=== PATIENT | male | born 1990 | race Caucasian/White ===

== ENCOUNTER 2018-05-29 12:15 | Inpatient (IN) | payer OTHER ==
[2018-05-29 13:26] LABS: Albumin 5.5 g/dL (3.9-5); Calcium 10.3 mg/dL (8.4-10.2)
[2018-05-29] MEDS ORDERED: ATIVAN IV ONE (13:38)
[2018-05-29] MEDS ORDERED: ATIVAN ONE (13:38)
[2018-05-29] MEDS ORDERED: NACL 0.9% 1000 ML 1,000 ML IV ONE ×2 (13:44→14:37)
[2018-05-29] MEDS ORDERED: ZOFRAN IV ONE (13:44)
--- NOTE | 2018-05-29 13:47 | Emergency Department Report ---
HPI - General Chief Complaint: Nausea/Vomiting/Diarrhea Time Seen by Provider: 05/29/18 13:40 - HPI HPI: 27-year-old male presents to the emergency department with complaint of a few days of nausea and vomiting, muscle cramping and suspicion of dehydration. 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 He has been drinking Gatorade and some other fluids but does not think he has been drinking enough. He has had some recent nausea and vomiting and has been unable to eat much food. The patient has a history of depression and anxiety and stopped his benzodiazepines cold turkey about one week ago. He otherwise denies any past medical history. He is currently here visiting/working from [place] and therefore does not have any local primary care physician. Patient vomited upon arrival to the emergency department. ED Past Medical Hx - Past Medical History Previous Medical History?: No - Surgical History Past Surgical History?: No - Social History Smoking Status: Current Every Day Smoker Substance Use Type: None - Medications Home Medications: Home Medications Medication Instructions Recorded Confirmed Last Taken Type Multivit-Minerals/FA/Lycopene [One 1 each PO DAILY 05/29/18 05/29/18 Unknown History Daily [employer] Tablet] ED Review of Systems ROS: Stated complaint: DEHYDRATION/MUSCLE SPASM Other details as noted in HPI Comment: All other systems reviewed and negative Constitutional: denies: chills, fever Eyes: denies: eye pain, eye discharge, vision change ENT: denies: ear pain, throat pain Respiratory: denies: cough, shortness of breath, wheezing Cardiovascular: denies: chest pain, palpitations Gastrointestinal: nausea, vomiting Genitourinary: denies: urgency, dysuria Musculoskeletal: myalgia. denies: joint swelling Skin: denies: rash, lesions Neurological: headache. denies: weakness, numbness Physical Exam - Physical Exam Vital Signs: Vital Signs 05/29/18 12:29 Temperature 97.9 F Pulse Rate 118 H Blood Pressure 132/78 O2 Sat by Pulse 100 Oximetry Physical Exam: GENERAL: The patient is well-developed well-nourished. HENT: Normocephalic. Atraumatic. Patient has moist mucous membranes. EYES: Extraocular motions are intact. Pupils equal reactive to light bilaterally. NECK: Supple. Trachea is midline. CHEST/LUNGS: Clear to auscultation. There is no respiratory distress noted. HEART/CARDIOVASCULAR: Regular. There is no tachycardia. There is no murmur. ABDOMEN: Abdomen is soft, nontender. Patient has normal bowel sounds. There is no abdominal distention. SKIN: Skin is warm and dry. NEURO: The patient is awake, alert, and oriented. The patient is cooperative. The patient has no focal neurologic deficits. The patient has normal speech. Cranial nerves II through XII grossly intact. MUSCULOSKELETAL: There is no tenderness or deformity. There is no limitation range of motion. There is no evidence of acute injury. ED Course Vital Signs 05/29/18 12:29 Temperature 97.9 F Pulse Rate 118 H Blood Pressure 132/78 O2 Sat by Pulse 100 Oximetry ED Medical Decision Making - Lab Data Result diagrams: 05/29/18 13:47 05/29/18 12:50 - Radiology Data Radiology results: report reviewed EXAM: US RENAL BILAT HISTORY: ROSI, renal failure TECHNIQUE: Ultrasound examination of the kidneys PRIORS: None. FINDINGS: Visualized right kidney: 11.6 x 5.1 x 5.6 cm. Visualized left kidney: 12.5 x 5.5 x 4.7 cm. Renal cortical thickness is 18 mm on the right and 17 mm on the left. Focal lesion: None visible Calculus: None visible Hydronephrosis: None Perinephric fluid: None Urinary bladder: No evidence of focal abnormality in visible portion. IMPRESSION: No sonographic evidence of renal pathology Transcribed By: HAILEY Dictated By: ALEKSANDR YADAV MD Electronically Authenticated By: ALEKSANDR YADAV MD Signed Date/Time: 05/29/18 1602 - Medical Decision Making The patient presents with some nausea, vomiting, generalized weakness and dehydration. His metabolic panel shows acute renal failure with a GFR of about 29 without any previous history of kidney disease. He has a CK of 9000 showing rhabdomyolysis. Renal ultrasound does not show any evidence of renal pathology. He has begun to receive IV fluid resuscitation and will be admitted to the hospital for further evaluation and treatment. Accepted by Dr. Stanton, admitting hospitalist. - Differential Diagnosis rhabdomyolysis, gastroenteritis, heatstroke Critical Care Time: No Critical care attestation.: If time is entered above; I have spent that time in minutes in the direct care of this critically ill patient, excluding procedure time. ED Disposition Clinical Impression: Dehydration Rhabdomyolysis Qualifiers: Rhabdomyolysis type: non-traumatic Qualified Code(s): M62.82 - Rhabdomyolysis Acute renal failure Qualifiers: Acute renal failure type: unspecified Qualified Code(s): N17.9 - Acute kidney failure, unspecified Disposition: 09 OP ADMIT IP TO THIS HOSP Is pt being admited?: Yes Condition: Fair Time of Disposition: 16:57
[2018-05-29 14:04] LABS: Basophils # (Auto) 0.1 K/mm3 (0.0-0.1); Basophils % (Auto) 0.6 % (0.0-1.8); Eosinophils % (Auto) 0.1 % (0.0-4.3); Hematocrit 48.1 % (35.5-45.6); Hemoglobin 16.6 gm/dl (11.8-15.2); Lymphocytes # (Auto) 2.3 K/mm3 (1.2-5.4); Lymphocytes % (Auto) 15.2 % (13.4-35.0); Mean Corpuscular HGB Conc 34 % (32-34); Mean Corpuscular Hemoglobin 30 pg (28-32); Mean Corpuscular Volume 88 fl (84-94); Monocytes # (Auto) 1.7 K/mm3 (0.0-0.8); Platelet Count 374 K/mm3 (140-440); Red Blood Count 5.49 M/mm3 (3.65-5.03); Red Cell Distribution Width 12.7 % (13.2-15.2)
[2018-05-29] MEDS ORDERED: ZOFRAN IV PRN (15:05)
[2018-05-29] MEDS ORDERED: TYLENOL PO PRN (15:05)
[2018-05-29] MEDS ORDERED: SODIUM CHLORIDE FLUSH SYRINGE 10 ML IV PRN (15:05)
[2018-05-29] MEDS ORDERED: PROVENTIL IH PRN (15:05)
--- NOTE | 2018-05-29 15:08 | History and Physical Report ---
History of Present Illness Chief complaint: I feel sick History of present illness: 27 YO Male with Depression, Medication noncompliance, Obesity, Nicotine Dependence presents to ED for evaluation. Pt states that he has experienced nausea, multiple episodes of vomiting, muscle cramping, and feeling sick over the past 3 days with worsening symptoms over the same time frame. 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 Pt seen and evaluated in ED and found to have Rhabdomyolysis, Acute Renal Failure, as well as SIRS. Pt admitted to medical floor, and treated with IVF resuscitation therapy. No reports of fever, chills, CP, Palpitations, Trauma , Skin rash, hematuria, urgency, frequency, or recent ill contacts. Past History Past Medical History: other (Depression, obeity) Past Surgical History: No surgical history, Other (reviewed) Social history: single, smoking Family history: no significant family history (reviewed) Medications and Allergies Allergies Allergy/AdvReac Type Severity Reaction Status Date / Time No Known Allergies Allergy Unverified 05/29/18 12:33 Home Medications Medication Instructions Recorded Confirmed Last Taken Type Multivit-Minerals/FA/Lycopene [One 1 each PO DAILY 05/29/18 05/29/18 Unknown History Daily [employer] Tablet] Active Meds: Active Medications Acetaminophen (Tylenol) 650 mg PO Q4H PRN PRN Reason: Pain MILD(1-3)/Fever >100.5/SPIVEY Albuterol (Proventil) 2.5 mg IH Q4HRT PRN PRN Reason: Shortness Of Breath Sodium Chloride (Nacl 0.9% 1000 Ml) 1,000 mls @ 999 mls/hr IV BOLUS ONE Stop: 05/29/18 15:37 Ondansetron HCl (Zofran) 4 mg IV Q8H PRN PRN Reason: Nausea And Vomiting Sodium Chloride (Sodium Chloride Flush Syringe 10 Ml) 10 ml IV BID CHIP Sodium Chloride (Sodium Chloride Flush Syringe 10 Ml) 10 ml IV PRN PRN PRN Reason: LINE FLUSH Review of Systems Constitutional: fatigue, weakness, malaise, no weight loss, no weight gain, no fever, no chills Ears, nose, mouth and throat: no ear pain, no ear discharge, no tinnitis, no decreased hearing, no nose pain, no nasal congestion, no nasal discharge Cardiovascular: no chest pain, no orthopnea, no palpitations, no rapid/ irregular heart beat, no edema Respiratory: no cough, no cough with sputum, no excessive sputum, no hemoptysis Gastrointestinal: nausea, vomiting, no hematemesis, no coffee ground emesis, no BRBPR, no melena, no hematochezia Genitourinary Male: no hematuria, no flank pain, no discharge, no urinary frequency, no urinary hesitancy Rectal: no pain, no incontinence, no bleeding Musculoskeletal: no neck stiffness, no neck pain, no shooting arm pain, no arm numbness/tingling, no low back pain, no shooting leg pain Integumentary: no rash, no pruritis, no redness, no sores, no wounds Neurological: no head injury, no paralysis, no weakness, no parathesias, no numbness, no tingling, no seizures Psychiatric: no anxiety, no memory loss, no change in sleep habits, no sleep disturbances, no insomnia, no hypersomnia Endocrine: no cold intolerance, no heat intolerance, no polyphagia, no excessive thirst, no polydipsia Hematologic/Lymphatic: no easy bruising, no easy bleeding, no lymphadenopathy, no lymphedema Allergic/Immunologic: no urticaria, no allergic rhinitis, no wheezing, no persistent infections, no anaphylaxis, no angioedema Exam - Constitutional Vitals: Temp Pulse Resp BP Pulse Ox 97.9 F 118 H 132/78 100 05/29/18 12:29 05/29/18 12:29 05/29/18 12:29 05/29/18 12:29 General appearance: Present: mild distress, obese - EENT Eyes: Present: PERRL ENT: hearing intact, clear oral mucosa - Neck Neck: Present: supple, normal ROM - Respiratory Respiratory effort: normal Respiratory: bilateral: CTA - Cardiovascular Heart Sounds: Present: S1 & S2. Absent: rub, click - Extremities Extremities: pulses symmetrical, No edema Peripheral Pulses: within normal limits - Abdominal General gastrointestinal: Present: soft, non-tender, non-distended, normal bowel sounds Male genitourinary: Present: normal - Integumentary Integumentary: Present: clear, dry, clammy, decreased turgor - Musculoskeletal Musculoskeletal: gait normal, strength equal bilaterally - Psychiatric Psychiatric: appropriate mood/affect, intact judgment & insight - Neurologic Neurologic: CNII-XII intact, moves all extremities Results - Labs CBC & Chem 7: 05/29/18 13:47 05/29/18 12:50 Labs: Abnormal lab results 05/29/18 05/29/18 05/29/18 Range/Units 12:50 13:47 13:47 WBC 15.2 H (4.5-11.0) K/mm3 RBC 5.49 H (3.65-5.03) M/mm3 Hgb 16.6 H (11.8-15.2) gm/dl Hct 48.1 H (35.5-45.6) % RDW 12.7 L (13.2-15.2) % [place] % (Auto) 11.0 H (0.0-7.3) % [place] # 1.7 H (0.0-0.8) K/mm3 Seg Neutrophils % 73.1 H (40.0-70.0) % Seg Neutrophils # 11.1 H (1.8-7.7) K/mm3 Sodium 134 L (137-145) mmol/L Chloride 84.6 L (98-107) mmol/L BUN 23 H (9-20) mg/dL Creatinine 2.6 H (0.8-1.5) mg/dL Glucose 112 H (75-100) mg/dL Calcium 10.3 H (8.4-10.2) mg/dL AST 197 H (5-40) units/L ALT 83 H (7-56) units/L Total Creatine Kinase 8999 H (55-170) units/L Total Protein 9.3 H (6.3-8.2) g/dL Albumin 5.5 H (3.9-5) g/dL Assessment and Plan - Patient Problems (1) SIRS (systemic inflammatory response syndrome) Current Visit: Yes Status: Acute Plan to address problem: IV antibiotic therapy, CBC, urinalysis, (2) Acute renal failure Current Visit: Yes Status: Acute Qualifiers: Acute renal failure type: with acute tubular necrosis Qualified Code(s): N17.0 - Acute kidney failure with tubular necrosis Plan to address problem: IVF resuscitation therapy, monitor uop q shift, urine electrolytes, avoid nephrotoxic agents. (3) Rhabdomyolysis Current Visit: Yes Status: Acute Qualifiers: Rhabdomyolysis type: non-traumatic Qualified Code(s): M62.82 - Rhabdomyolysis Plan to address problem: IVF resuscitation therapy bicarbonate drip, CK level, BMP, repeat CK level in am , repeat bmp to monitor serum creatnine. (4) DVT prophylaxis Current Visit: Yes Status: Acute Plan to address problem: SCD to BLE while in bed.
[2018-05-29] MEDS ORDERED: MORPHINE IV ONE (15:33)
[2018-05-29] MEDS ORDERED: NACL 0.45% 3,000 ML IV SCH (16:00)
[2018-05-29] MEDS ORDERED: SODIUM BICARBONATE 150 MEQ in D5W 1,000 ML IV ONE (16:00)
--- NOTE | 2018-05-29 16:02 | Ultrasound Report ---
FINAL REPORT EXAM: US RENAL BILAT HISTORY: ROSI, renal failure TECHNIQUE: Ultrasound examination of the kidneys PRIORS: None. FINDINGS: Visualized right kidney: 11.6 x 5.1 x 5.6 cm. Visualized left kidney: 12.5 x 5.5 x 4.7 cm. Renal cortical thickness is 18 mm on the right and 17 mm on the left. Focal lesion: None visible Calculus: None visible Hydronephrosis: None Perinephric fluid: None Urinary bladder: No evidence of focal abnormality in visible portion. IMPRESSION: No sonographic evidence of renal pathology
[2018-05-29] MEDS ORDERED: MORPHINE ONE (17:17)
[2018-05-29 17:49] LABS: Bilirubin,Urine NEG (Negative); Blood,Urine NEG (Negative); Color,Urine Yellow (Yellow); Hyaline Casts,Urine 1 /LPF; Mucus,Urine FEW /HPF; Protein,Urine <15 mg/dL mg/dL (Negative); Urobilinogen,Urine < 2.0 mg/dL (<2.0)
[2018-05-29 17:55] LABS: Creatinine,Urine 161.3 mg/dL (0.1-20.0)
[2018-05-29 18:56] LABS: Hepatitis B Core IgM Non-Reactive (NonReactive); Hepatitis B Surface Antigen Non-Reactive (Negative); Hepatitis C Virus Antibody Non-Reactive (NonReactive)
[2018-05-29] MEDS: PERCOCET 5/325 PO PRN (22:42)
[2018-05-29] MEDS: AMBIEN PO PRN (22:43)
[2018-05-30] MEDS: SODIUM CHLORIDE FLUSH SYRINGE 10 ML IV SCH ×3 (02:13→21:49)
[2018-05-30 08:54] LABS: BUN/Creatinine Ratio 21; Blood Urea Nitrogen 15 mg/dL (9-20); Calcium 8.8 mg/dL (8.4-10.2); Hemolysis Index 4
[2018-05-30] MEDS: THERAGRAN-M Tab PO SCH (09:37)
[2018-05-30] MEDS: ROCEPHIN/NS 1 GM/50 ML 1 GM/50 ML BAG IV SCH (09:37)
[2018-05-30] MEDS: PERCOCET 5/325 PO PRN ×2 (09:43→21:50)
[2018-05-30] MEDS ORDERED: NACL 0.9% 1000 ML 2,000 ML IV ONE (10:09)
--- NOTE | 2018-05-30 10:10 | Progress Note ---
Assessment and Plan Assessment and plan: - Patient Problems (1) SIRS (systemic inflammatory response syndrome) Current Visit: Yes Status: Acute Plan to address problem: IV antibiotic therapy, CBC, urinalysis, - No clear infectious source. no cough, no shortness of breath, no pyuria (2) Acute renal failure Current Visit: Yes Status: Acute Qualifiers: Acute renal failure type: with acute tubular necrosis Qualified Code(s): N17.0 - Acute kidney failure with tubular necrosis Plan to address problem: IVF resuscitation therapy, monitor uop q shift, urine electrolytes, avoid nephrotoxic agents. Give additional bolus of fluids (3) Rhabdomyolysis Current Visit: Yes Status: Acute Qualifiers: Rhabdomyolysis type: non-traumatic Qualified Code(s): M62.82 - Rhabdomyolysis Plan to address problem: IVF resuscitation therapy bicarbonate drip, CK level, BMP, repeat CK level in am , repeat bmp to monitor serum creatnine. Give additional fluid bolus (4) DVT prophylaxis Current Visit: Yes Status: Acute Plan to address problem: SCD to BLE while in bed. History Interval history: Patient seen and examined no acute distress. Resting comfortably. Was called later and informed that the patient is quit anxious and that the said the patient is using xanax at home, although the patient states that he stopped last weekend. Hospitalist Physical - Physical exam Narrative exam: VITAL SIGNS: Reviewed. GENERAL: The patient appeared well nourished and normally developed. Vital signs as documented. HEAD: No signs of head trauma. EYES: Pupils are equal. Extraocular motions intact. EARS: Hearing grossly intact. MOUTH: Oropharynx is normal. NECK: No adenopathy, no JVD. CHEST: Chest with clear breath sounds bilaterally. No wheezes, rales, or rhonchi. CARDIAC: Regular rate and rhythm. S1 and S2, without murmurs, gallops, or rubs. VASCULAR: No Edema. Peripheral pulses normal and equal in all extremities. ABDOMEN: Soft, without detectable tenderness. No sign of distention. No rebound or guarding, and no masses palpated. Bowel Sounds normal. MUSCULOSKELETAL: Good range of motion of all major joints. Extremities without clubbing, cyanosis or edema. NEUROLOGIC EXAM: Alert and oriented x 3. No focal sensory or strength deficits. Speech normal. Follows commands. PSYCHIATRIC: Mood normal. SKIN: No rash or lesions. - Constitutional Vitals: Temp Pulse Resp BP Pulse Ox 98.2 F 72 16 106/46 97 05/30/18 05:33 05/30/18 05:33 05/30/18 05:33 05/30/18 05:33 05/30/18 05:33 General appearance: Present: mild distress, obese Results - Labs CBC & Chem 7: 05/29/18 13:47 05/30/18 06:31 Labs: Laboratory Last Values WBC 15.2 K/mm3 (4.5-11.0) H 05/29/18 13:47 RBC 5.49 M/mm3 (3.65-5.03) H 05/29/18 13:47 Hgb 16.6 gm/dl (11.8-15.2) H 05/29/18 13:47 Hct 48.1 % (35.5-45.6) H 05/29/18 13:47 MCV 88 fl (84-94) 05/29/18 13:47 MCH 30 pg (28-32) 05/29/18 13:47 MCHC 34 % (32-34) 05/29/18 13:47 RDW 12.7 % (13.2-15.2) L 05/29/18 13:47 Plt Count 374 K/mm3 (140-440) 05/29/18 13:47 Lymph % (Auto) 15.2 % (13.4-35.0) 05/29/18 13:47 [place] % (Auto) 11.0 % (0.0-7.3) H 05/29/18 13:47 Eos % (Auto) 0.1 % (0.0-4.3) 05/29/18 13:47 Baso % (Auto) 0.6 % (0.0-1.8) 05/29/18 13:47 Lymph # 2.3 K/mm3 (1.2-5.4) 05/29/18 13:47 [place] # 1.7 K/mm3 (0.0-0.8) H 05/29/18 13:47 Eos # 0.0 K/mm3 (0.0-0.4) 05/29/18 13:47 Baso # 0.1 K/mm3 (0.0-0.1) 05/29/18 13:47 Seg Neutrophils % 73.1 % (40.0-70.0) H 05/29/18 13:47 Seg Neutrophils # 11.1 K/mm3 (1.8-7.7) H 05/29/18 13:47 Sodium 133 mmol/L (137-145) L 05/30/18 06:31 Potassium 3.5 mmol/L (3.6-5.0) L 05/30/18 06:31 Chloride 92.2 mmol/L (98-107) L 05/30/18 06:31 Carbon Dioxide 27 mmol/L (22-30) 05/30/18 06:31 Anion Gap 17 mmol/L 05/30/18 06:31 BUN 15 mg/dL (9-20) 05/30/18 06:31 Creatinine 0.7 mg/dL (0.8-1.5) L D 05/30/18 06:31 Estimated GFR > 60 ml/min 05/30/18 06:31 BUN/Creatinine Ratio 21 % 05/30/18 06:31 Glucose 100 mg/dL (75-100) 05/30/18 06:31 Calcium 8.8 mg/dL (8.4-10.2) 05/30/18 06:31 Total Bilirubin 1.20 mg/dL (0.1-1.2) 05/29/18 12:50 AST 197 units/L (5-40) H 05/29/18 12:50 ALT 83 units/L (7-56) H 05/29/18 12:50 Alkaline Phosphatase 89 units/L (35-129) 05/29/18 12:50 Total Creatine Kinase 4571 units/L (55-170) H 05/30/18 06:31 Total Protein 9.3 g/dL (6.3-8.2) H 05/29/18 12:50 Albumin 5.5 g/dL (3.9-5) H 05/29/18 12:50 Albumin/Globulin Ratio 1.4 % 05/29/18 12:50 Lipase 17 units/L (13-60) 05/29/18 13:47 Urine Color Yellow (Yellow) 05/29/18 17:26 Urine Turbidity Slightly-cloudy (Clear) 05/29/18 17:26 Urine pH 5.0 (5.0-7.0) 05/29/18 17:26 Ur Specific [place] 1.013 (1.003-1.030) 05/29/18 17:26 Urine Protein <15 mg/dl mg/dL (Negative) 05/29/18 17:26 Urine Glucose (UA) Neg mg/dL (Negative) 05/29/18 17:26 Urine Ketones 20 mg/dL (Negative) 05/29/18 17:26 Urine Blood Neg (Negative) 05/29/18 17:26 Urine Nitrite Neg (Negative) 05/29/18 17:26 Urine Bilirubin Neg (Negative) 05/29/18 17:26 Urine Urobilinogen < 2.0 mg/dL (<2.0) 05/29/18 17:26 Ur Leukocyte Esterase Neg (Negative) 05/29/18 17:26 Urine WBC (Auto) 5.0 /HPF (0.0-6.0) 05/29/18 17:26 Urine RBC (Auto) 1.0 /HPF (0.0-6.0) 05/29/18 17:26 Hyaline Casts 1 /LPF 05/29/18 17:26 Urine Mucus Few /HPF 05/29/18 17:26 Urine Creatinine 161.3 mg/dL (0.1-20.0) H 05/29/18 17:26 Urine Sodium 14 mmol/L 05/29/18 17:26 Hep Bs Antigen Non-reactive (Negative) 05/29/18 18:06 Hep B Core IgM Ab Non-reactive (NonReactive) 05/29/18 18:06 Hepatitis C Antibody Non-reactive (NonReactive) 05/29/18 18:06
[2018-05-30] MEDS: SODIUM BICARBONATE 150 MEQ in D5W 1,000 ML IV SCH (16:49)
[2018-05-30] MEDS: LEXAPRO PO SCH (16:50)
[2018-05-30] MEDS: XANAX PO PRN (16:50)
[2018-05-30] MEDS: AMBIEN PO PRN (21:49)
[2018-05-31] MEDS: XANAX PO PRN (06:16)
[2018-05-31 07:29] LABS: Mean Corpuscular HGB Conc 35 % (32-34); Mean Corpuscular Hemoglobin 31 pg (28-32); Mean Corpuscular Volume 89 fl (84-94); Platelet Count 250 K/mm3 (140-440); Red Blood Count 4.16 M/mm3 (3.65-5.03); Red Cell Distribution Width 12.6 % (13.2-15.2)
[2018-05-31 07:43] LABS: Alanine Aminotransferase 44 units/L (7-56); Albumin 3.7 g/dL (3.9-5); BUN/Creatinine Ratio 18; Blood Urea Nitrogen 11 mg/dL (9-20); Calcium 8.5 mg/dL (8.4-10.2); Hemolysis Index 6
[2018-05-31 07:44] LABS: Hemoglobin 12.7 gm/dl (11.8-15.2)
[2018-05-31] MEDS: SODIUM BICARBONATE 150 MEQ in D5W 1,000 ML IV SCH (07:58)
[2018-05-31] MEDS: THERAGRAN-M Tab PO SCH (09:18)
[2018-05-31] MEDS: SODIUM CHLORIDE FLUSH SYRINGE 10 ML IV SCH (09:18)
[2018-05-31] MEDS: LEXAPRO PO SCH (09:18)
[2018-05-31] MEDS: ROCEPHIN/NS 1 GM/50 ML 1 GM/50 ML BAG IV SCH (10:38)
--- NOTE | 2018-05-31 10:49 | Discharge Summary ---
Providers - Providers Date of Admission: 05/29/18 15:05 Attending physician: TANA AMBROSIO MD Primary care physician: [facility] Hospitalization Reason for admission: rhabdomyolysis Condition: Stable Hospital course: 27 YO Male with Depression, Medication noncompliance, Obesity, Nicotine Dependence presents to ED for evaluation. Pt states that he has experienced nausea, multiple episodes of vomiting, muscle cramping, and feeling sick over the past 3 days with worsening symptoms over the same time frame. 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 Pt seen and evaluated in ED and found to have Rhabdomyolysis, Acute Renal Failure, as well as SIRS. Pt admitted to medical floor, and treated with IVF resuscitation therapy. No reports of fever, chills, CP, Palpitations, Trauma , Skin rash, hematuria, urgency, frequency, or recent ill contacts. Patient was treated with IV hydration with good improvement in renal function also improved. He was restarted on his Xanax Lexapro echo to the is supposed to be on this medication he only stopped last week because of insurance issues. No worsening encephalopathy was noted except for restlessness which also resolved. He's stable at this point for discharge medication was provided and need to be compliant with medications. Also have his physicians make adjustments if insurance is an issue in retrospect to cost. He was also encouraged to stay hydrated. (1) SIRS (systemic inflammatory response syndrome) (2) Acute renal failure-acute tubular necrosis (3) Rhabdomyolysis (4) Depression Disposition: DC-01 TO HOME OR SELFCARE Time spent for discharge: 35 mins Core Measure Documentation - Palliative Care Palliative Care/ Comfort Measures: Not Applicable - Core Measures Any of the following diagnoses?: none - VTE Discharge Requirements Deep Vein Thrombosis/Pulmonary Embolism Present on Admission: No Exam - Physical Exam Narrative exam: VITAL SIGNS: Reviewed. GENERAL: The patient appeared well nourished and normally developed. Vital signs as documented. HEAD: No signs of head trauma. EYES: Pupils are equal. Extraocular motions intact. EARS: Hearing grossly intact. MOUTH: Oropharynx is normal. NECK: No adenopathy, no JVD. CHEST: Chest with clear breath sounds bilaterally. No wheezes, rales, or rhonchi. CARDIAC: Regular rate and rhythm. S1 and S2, without murmurs, gallops, or rubs. VASCULAR: No Edema. Peripheral pulses normal and equal in all extremities. ABDOMEN: Soft, without detectable tenderness. No sign of distention. No rebound or guarding, and no masses palpated. Bowel Sounds normal. MUSCULOSKELETAL: Good range of motion of all major joints. Extremities without clubbing, cyanosis or edema. NEUROLOGIC EXAM: Alert and oriented x 3. No focal sensory or strength deficits. Speech normal. Follows commands. PSYCHIATRIC: Mood normal. SKIN: No rash or lesions. - Constitutional Vitals: Temp Pulse Resp BP Pulse Ox 98.4 F 76 18 123/60 94 05/31/18 06:09 05/31/18 06:09 05/31/18 06:09 05/31/18 06:09 05/31/18 06:09 Plan Activity: advance as tolerated, fall precautions Diet: regular Special Instructions: record daily weights, record daily BP diary Additional Instructions: follow with pyshciatry Follow up with: PRIMARY CARE, [Primary Care Provider] - 7 Days Prescriptions: ALPRAZolam [Xanax TAB] 0.5 mg PO BID PRN #30 tablet PRN Reason: Anxiety Escitalopram [Lexapro] 10 mg PO DAILY #30 tablet
[2018-05-31 12:18] VITALS: BP 123/49
== END 2018-05-31 15:00 | disposition home or self-care (01) | DRG 557 ==
LOC: ED 12:15 → 3A 15:05
PROVIDERS: ADMIT Internal Medicine; ATTEND Internal Medicine
DX: M62.82 Rhabdomyolysis (principal); N17.0 Acute kidney failure with tubular necrosis; R65.10 Systemic inflammatory response syndrome (SIRS) of non-infectious origin without acute organ dysfunction; F32.9 Major depressive disorder, single episode, unspecified; E66.9 Obesity, unspecified; F17.200 Nicotine dependence, unspecified, uncomplicated; F41.9 Anxiety disorder, unspecified; E86.0 Dehydration; Z91.14 Patient's other noncompliance with medication regimen; Z68.30 Body mass index [BMI] 30.0-30.9, adult; Z79.899 Other long term (current) drug therapy
CPT/HCPCS: 36415; 76770; 80048; 80053; 80074; 81001; 82550; 82570; 83690; 84300; 85025; 85027; 96361; 96374; 96375; 99406; J0696; J2060; J2270; J2405; J7030; J7070